=== PATIENT | female | born 1980 | race Caucasian/White ===

== ENCOUNTER → 2021-08-20 | Outpatient (CLI) | payer OTHER | LOC: COL.LAB 13:43 | DX: Z00.00 Encounter for general adult medical examination without abnormal findings (principal) ==

== ENCOUNTER → 2021-11-01 | Outpatient (CLI) | payer OTHER | LOC: MC.RAD 15:30 | DX: Z12.31 Encounter for screening mammogram for malignant neoplasm of breast (principal); N63.20 Unspecified lump in the left breast, unspecified quadrant; N64.89 Other specified disorders of breast ==

== ENCOUNTER → 2021-11-15 | Outpatient (CLI) | payer OTHER | LOC: MC.RAD 14:00 | DX: N60.12 Diffuse cystic mastopathy of left breast (principal); N64.89 Other specified disorders of breast ==